=== PATIENT | female | born 1975 | race Caucasian/White ===

== ENCOUNTER 2017-07-18 08:39 | Emergency (ER) | payer BC ==
[~2017-07-18] VITALS: Ht 160 cm; Wt 96.6 kg
[2017-07-18 08:46] VITALS: BP 148/49; Ht 160 cm; Wt 96.6 kg
== END 2017-07-18 10:20 | disposition hospice, home (50) ==
LOC: ED 08:39
DX: M72.2 Plantar fascial fibromatosis (principal)
CPT/HCPCS: J1885